=== PATIENT | male | born 1955 | race Caucasian/White ===

== ENCOUNTER 2022-04-25 08:30 | Outpatient (CLI) | payer MEDICARE | END 2022-04-25 23:59 | disposition home or self-care (01) | LOC: LAB 08:30 | PROVIDERS: ATTEND Internal Medicine Interventional Cardiology | DX: Z01.812 Encounter for preprocedural laboratory examination (principal); Z20.822 Contact with and (suspected) exposure to COVID-19 ==

== ENCOUNTER → 2022-04-27 | Day surgery (SDC) | payer MEDICARE, OTHER ==
[~2022-04-27] MED LIST: LIDOCAINE-MPF 2% 5 ML VIAL ONE; PROPOFOL 200 MG/20 ML BOTTLE ONE
[2022-04-27 08:02] LABS: HEMATOCRIT 37.1 % (36.7-47.1); MEAN CORPUSCULAR HEMOGLOBIN 30.1 uug (23.8-33.4); MEAN CORPUSCULAR VOLUME 89.7 fL (73.0-96.2); PLATELET COUNT (AUTO) 186 K/uL (152-348)
[2022-04-27 08:15] LABS: POTASSIUM 4.6 mmol/L (3.5-5.1)
[2022-04-27 08:48] LABS: CREATININE 8.5 mg/dL (0.6-1.3)
== END | disposition home or self-care (01) ==
LOC: DS 07:15
PROVIDERS: ATTEND Internal Medicine Interventional Cardiology
DX: I34.0 Nonrheumatic mitral (valve) insufficiency (principal); I12.0 Hypertensive chronic kidney disease with stage 5 chronic kidney disease or end stage renal disease; N18.6 End stage renal disease; E78.5 Hyperlipidemia, unspecified; Z79.899 Other long term (current) drug therapy; Z98.890 Other specified postprocedural states; Z88.8 Allergy status to other drugs, medicaments and biological substances; Z86.73 Personal history of transient ischemic attack (TIA), and cerebral infarction without residual deficits
CPT/HCPCS: 36415; 71045; 85025; 85730; 93005; 93312; A4663; J3490; J7120